=== PATIENT | male | born 1980 | race African-American/Black ===

== ENCOUNTER 2019-09-05 19:31 | Emergency (ER) | payer SELFPAY ==
[2019-09-05] MEDS ORDERED: diphenhydrAMINE 50 MG/ML VIAL ONE (20:06)
[2019-09-05] MEDS ORDERED: methylPREDNISolone Sod Succ/PF 125 MG/2 ML VIAL ONE (20:06)
[2019-09-05] MEDS ORDERED: Famotidine In NaCl 20 mg/50 ml Premix Bag ONE (20:06)
[2019-09-05 20:42] LABS: #Basophils 0.1 thou/uL (0.0-0.2); #Eosinphils 0.4 thou/uL (0.0-0.7); #Lymphocytes 3.7 thou/uL (1.20-3.40); #Monocytes 0.5 thou/uL (0.11-0.59); #Neutrophils 2.8 thou/uL (1.40-6.50); %Basophils 1.1 % (0.0-1.0); %Lymphocytes 49.2 % (21.0-51.0); %Monocytes 6.7 % (0.0-10.0); %Neutrophils 37.9 % (42.0-75.0); Hemoglobin 13.2 g/dL (14.0-18.0); Mean Corpuscular HGB CONC 32.9 g/dL (32.0-36.0); Mean Corpuscular Hemoglobin 31.4 pg (27.0-31.0); Mean Corpuscular Volume 95.6 fL (78.0-98.0); Mean Platelet Volume 8.8 fL (7.4-10.4); Platelet Count 326 thou/uL (130-400); RBC Distribution Width 12.8 % (11.5-14.5); Red Blood Cell (RBC) Count 4.21 mill/uL (4.70-6.10); White Blood Cell (WBC) Count 7.4 thou/uL (4.8-10.8)
[2019-09-05 20:53] LABS: ALT (SGPT) 22 U/L (8-55); AST (SGOT) 22 U/L (5-34); Albumin 3.1 g/dL (3.5-5.0); Alkaline Phosphatase 71 U/L (40-110); Anion Gap 18 mmol/L (10-20); BUN (Urea Nitrogen) 11 mg/dL (8.9-20.6); Bilirubin, Total Less than 0.2 mg/dL (0.2-1.2); Calc. Creatinine Clearance 0 mL/min (70-130); Calcium 7.6 mg/dL (7.8-10.44); Carbon Dioxide 16 mmol/L (22-29); Chloride 109 mmol/L (98-107); Estimated GFR-MDRD Greater than 90; Globulin 3.5 g/dL (2.4-3.5); Glucose 101 mg/dL (70-105); Potassium 3.9 mmol/L (3.5-5.1); Protein, Total 6.6 g/dL (6.0-8.3); Sodium 139 mmol/L (136-145)
== END 2019-09-05 21:32 | disposition home or self-care (01) ==
LOC: MADERS 19:31
DX: T78.1XXA Other adverse food reactions, not elsewhere classified, initial encounter (principal); B20 Human immunodeficiency virus [HIV] disease; I10 Essential (primary) hypertension
CPT/HCPCS: 80053; 85025; 86140; 96365; 96375; J1200; J2930

== ENCOUNTER 2020-05-11 07:54 | Emergency (ER) | payer SELFPAY ==
[2020-05-11] MEDS ORDERED: Ondansetron ODT 4 MG TAB ONE (08:28)
== END 2020-05-11 08:43 | disposition home or self-care (01) ==
LOC: MADERS 07:54
DX: K52.9 Noninfective gastroenteritis and colitis, unspecified (principal); I10 Essential (primary) hypertension; B20 Human immunodeficiency virus [HIV] disease
CPT/HCPCS: 99283; Q0162